=== PATIENT | female | born 1940 | race Caucasian/White ===

== ENCOUNTER 2019-05-03 05:46 | Outpatient (CLI) | payer MEDICARE ==
[~2019-05-03] VITALS: Ht 157 cm; Wt 61.3 kg
[2019-05-05] MEDS ORDERED: VALS320T15 PO ×2 (11:42)
[2019-05-05] MEDS ORDERED: CLOP75TA69 PO ×2 (11:43)
[2019-05-05] MEDS ORDERED: LEVO75TA6 PO ×2 (11:43)
[2019-05-05] MEDS ORDERED: ROSU20TA32 PO ×2 (11:43)
[2019-05-05] MEDS ORDERED: CHOL500061 PO ×2 (11:43)
[2019-05-05] MEDS ORDERED: AMLO10TA7 PO ×2 (11:43)
[2019-05-05] MEDS ORDERED: ASPI-586 PO ×2 (11:43)
== END 2019-05-05 11:54 | disposition home or self-care (01) ==
LOC: PREOP 05:46
PROVIDERS: ATTEND Specialist
DX: Z01.818 Encounter for other preprocedural examination (principal)

== ENCOUNTER 2019-05-06 10:13 | Day surgery (SDC) | payer MEDICARE, OTHER ==
[~2019-05-06] VITALS: Ht 154.9 cm; Wt 61.3 kg
[~2019-05-06 10:13] MED LIST: AMLO10TA7 PO; ASPI-586 PO; CHOL500061 PO; CLOP75TA69 PO; LEVO75TA6 PO; ROSU20TA32 PO; VALS320T15 PO
[2019-05-06 10:30] VITALS: BP 141/78
[2019-05-06] MEDS ORDERED: PHENYLEPHRINE 10% OPHTH (NEO-SYN) 5 ML BTL OU PRN (10:30)
[2019-05-06] MEDS ORDERED: TROPICAMIDE 1% OPH SOLN (MYDRIACYL) 15 ML BTL OU PRN (10:30)
[2019-05-06] MEDS: TETRACAINE 0.5% OPHTH SOLN 4 ML BTL (SINGLE DOSE ONLY) OU PRN ×3 (10:37→10:50)
[2019-05-06 11:20] VITALS: BP 141/78
--- NOTE | 2019-05-06 11:24 | Ophthalmologist Pre-Op Note ---
Pre-Operative Progress Note H&P Reviewed The H&P was reviewed, patient examined and no changes noted. Date H&P Reviewed: May 06, 2019 Time H&P Reviewed: 11:17 Pre-Op Dx Secondary Cataract, Right Eye BERT DEL CID MD May 06, 2019 11:24
--- NOTE | 2019-05-06 11:25 | Ophthalmology Operative Report ---
YAG Capsulotomy PREOPERATIVE DIAGNOSIS: Secondary Cataract Right Eye POSTOPERATIVE DIAGNOSIS: Secondary Cataract Right Eye PROCEDURE: YAG Capsulotomy, right eye SURGEON: Reynaldo Del Cid ANESTHESIA: Topical anesthesia COMPLICATIONS: None ESTIMATED BLOOD LOSS: Minimal DESCRIPTION OF PROCEDURE: After proper informed consent was obtained, the patient's, a 78 female, right eye received one drop of Tropicamide and one drop of Tetracaine. The patient was then placed at the YAG laser and using a power of [ 3.2] millijoules and [16 ] bursts were used to fashion a central capsulotomy. The patient tolerated the procedure well without complications. REYNALDO DEL CID MD May 06, 2019 11:25
== END 2019-05-06 11:20 | disposition home or self-care (01) ==
LOC: SDC 10:13
PROVIDERS: ATTEND Specialist
DX: H26.491 Other secondary cataract, right eye (principal); Z87.891 Personal history of nicotine dependence; Z79.82 Long term (current) use of aspirin